=== PATIENT | female | born 1965 | race Caucasian/White ===

== ENCOUNTER 2018-01-31 12:10 | Outpatient (CLI) | payer OTHER | END 2018-01-31 12:11 | disposition home or self-care (01) | LOC: RT 12:10 | PROVIDERS: ATTEND Naturopath | DX: I49.9 Cardiac arrhythmia, unspecified (principal) | CPT/HCPCS: 93005 ==

== ENCOUNTER 2018-05-12 08:17 | Outpatient (CLI) | payer OTHER | END 2018-05-12 08:18 | disposition home or self-care (01) | LOC: DI 08:17 | PROVIDERS: ATTEND Naturopath | DX: R00.1 Bradycardia, unspecified (principal) | CPT/HCPCS: 93306 ==